=== PATIENT | female | born 1955 | race Asian ===

== ENCOUNTER 2020-07-12 07:54 | Day surgery (SDC) | payer OTHER, SELFPAY ==
[~2020-07-12] VITALS: Ht 160 cm; Wt 59.0 kg
[2020-07-12] MEDS ORDERED: MIDAZOLAM 5 MG/5 ML VIAL ONE (09:30)
[2020-07-12] MEDS ORDERED: fentaNYL citrate 0.05 MG/ML VIAL ONE (09:30)
[2020-07-12] MEDS ORDERED: LIDOCAINE 2% 100 MG/5 ML UJET TP ONE (09:30)
[2020-07-12] MEDS ORDERED: diphenhydrAMINE 50 MG/ML VIAL ONE (09:30)
[2020-07-12] MEDS ORDERED: fentaNYL citrate 0.05 MG/ML VIAL IVP ONE (10:55)
[2020-07-12] MEDS ORDERED: MIDAZOLAM 2 MG/2 ML VIAL IVP ONE (10:55)
== END 2020-07-12 11:30 | disposition home or self-care (01) ==
LOC: MDS 07:54 → MFCC 07:55 → MDS 11:30
PROVIDERS: ATTEND Internal Medicine Gastroenterology
DX: Z12.11 Encounter for screening for malignant neoplasm of colon (principal); I10 Essential (primary) hypertension; Z88.0 Allergy status to penicillin; Z90.710 Acquired absence of both cervix and uterus; Z79.899 Other long term (current) drug therapy; Z20.828 Contact with and (suspected) exposure to other viral communicable diseases
CPT/HCPCS: 45378; J2250; J3010; U0003; J1200